=== PATIENT | female | born 1970 | race Caucasian/White ===

== ENCOUNTER → 2016-06-27 | Outpatient (CLI) | payer BC ==
[~2016-06-27] MED LIST: DESYREL 100MG100 MG PO; LEVBID0.375 MG PO; LORTAB 5/500 501 TAB PO; MULTIPLE VITAMI1 CAP PO; RYBIX ODT50 MG PO; VALTURNA 300 MG1 TAB PO; VITAMIN D1000 IU PO; ZOVIRAX800 MG PO; [UNRECOGNIZED DRUG - OTHER] PO; [UNRECOGNIZED DRUG - OTHER] PO; [UNRECOGNIZED DRUG - OTHER] PO
== END ==
LOC: MC.RAD 07:20
DX: Z12.31 Encounter for screening mammogram for malignant neoplasm of breast (principal)

== ENCOUNTER 2016-09-21 19:12 | Inpatient (IN) | payer BC ==
[~2016-09-21] VITALS: Ht 167.6 cm; Wt 96.2 kg
[~2016-09-21 19:12] MED LIST changes: -DESYREL 100MG100 MG PO; -LEVBID0.375 MG PO; -MULTIPLE VITAMI1 CAP PO; -VITAMIN D1000 IU PO; -ZOVIRAX800 MG PO; -[UNRECOGNIZED DRUG - OTHER] PO
[2016-09-21] MEDS ORDERED: VITAMIN D1000 IU PO (19:18)
[2016-09-21] MEDS ORDERED: [UNRECOGNIZED DRUG - OTHER] PO (19:19)
[2016-09-21 20:15] LABS: BASO % 0.2 % (0.0-2.0); EOS % 0.1 % (0-4.0); GRAN # 6.2 (1.4-6.5); GRAN % 67.4 % (42.2-75.2); HEMATOCRIT 41.8 % (37.0-47.0); HEMOGLOBIN 13.9 g/dl (12.5-16.0); LYMPH # 2.3 (1.2-3.4); LYMPH % 24.6 % (20.0-51.0); MEAN CELL VOLUME 91 fl (80.0-100.0); MEAN CORPUSCULAR HEMOGLOBIN 30 pg (27.0-31.0); MEAN CORPUSCULAR HGB CONC 33 g/dl (33.0-37.0); MEAN PLATELET VOLUME 11.1 fl (7.4-10.4); MONO # 0.7 (0.1-0.6); MONO % 7.4 % (1.7-9.3); PLATELET COUNT 306 K/mm3 (130-400); RED BLOOD COUNT 4.59 M/mm3 (4.10-5.30); REDCELL DISTRIBUTION WIDTH-CV 12.4 % (11.5-14.5); WHITE BLOOD COUNT 9.2 K/mm3 (4.8-10.8)
[2016-09-21 20:27] LABS: ADJUSTED CALCIUM 8.7 mg/dL (8.4-10.2); ALBUMIN 4.7 gm/dL (3.5-5.0); BILIRUBIN,TOTAL 2.1 mg/dL (0.0-1.0); CALCIUM 9.3 mg/dL (8.4-10.2); CREATININE, serum 0.87 mg/dL (0.52-1.25); POTASSIUM 3.9 mmol/L (3.4-5.0)
[2016-09-21 22:25] LABS: PH 6 (5-8); SQUAMOUS EPITHELIAL None Seen /hpf; URINE APPEARANCE Clear; URINE BACTERIA None Seen /hpf; URINE BILIRUBIN Negative (NEGATIVE); URINE BLOOD 1+ (NEGATIVE); URINE COLOR Yellow; URINE GLUCOSE Negative (NEGATIVE); URINE KETONE 1+ (NEGATIVE); URINE UROBILINOGEN Negative (NEGATIVE); URINE WBC 0-2 /hpf
[2016-09-21] MEDS ORDERED: LEVBID0.375 MG PO (23:35)
[2016-09-21] MEDS ORDERED: DESYREL 100MG100 MG PO (23:36)
[2016-09-21] MEDS ORDERED: ZOVIRAX800 MG PO (23:37)
[2016-09-21] MEDS ORDERED: MULTIPLE VITAMI1 CAP PO (23:38)
[2016-09-21 23:52] VITALS: BP 119/73; PULSE 54
[2016-09-21 23:59] VITALS: BP 1256/75; PULSE 59; TEMP 98
[2016-09-22] VITALS (7 sets, daily range): BP systolic 94–132; BP diastolic 42–74; PULSE 53–63; TEMP 97.7–98.4
[2016-09-22 07:46] LABS: CALCIUM 8.7 mg/dL (8.4-10.2); CREATININE, serum 0.77 mg/dL (0.52-1.25); POTASSIUM 3.5 mmol/L (3.4-5.0)
[2016-09-22 07:47] LABS: BASO % 0.3 % (0.0-2.0); EOS % 0.4 % (0-4.0); GRAN # 3.6 (1.4-6.5); GRAN % 48.2 % (42.2-75.2); LYMPH # 3.2 (1.2-3.4); LYMPH % 42.7 % (20.0-51.0); MEAN CELL VOLUME 92 fl (80.0-100.0); MEAN CORPUSCULAR HGB CONC 33 g/dl (33.0-37.0); MONO # 0.6 (0.1-0.6); MONO % 7.9 % (1.7-9.3); PLATELET COUNT 249 K/mm3 (130-400); RED BLOOD COUNT 3.81 M/mm3 (4.10-5.30); REDCELL DISTRIBUTION WIDTH-CV 12.7 % (11.5-14.5); WHITE BLOOD COUNT 7.5 K/mm3 (4.8-10.8)
[2016-09-22 08:03] LABS: HEMATOCRIT 34.9 % (37.0-47.0); HEMOGLOBIN 11.5 g/dl (12.5-16.0); MEAN CORPUSCULAR HEMOGLOBIN 30 pg (27.0-31.0)
[2016-09-23 00:40] VITALS: BP 118/72; PULSE 57; TEMP 98
[2016-09-23 04:50] VITALS: BP 124/66; PULSE 57; TEMP 98.3
[2016-09-23 08:13] VITALS: BP 111/66; PULSE 76; TEMP 98
[2016-09-23 11:11] LABS: ADJUSTED CALCIUM 8.9 mg/dL (8.4-10.2); ALBUMIN 3.8 gm/dL (3.5-5.0); CALCIUM 8.7 mg/dL (8.4-10.2); CREATININE, serum 0.77 mg/dL (0.52-1.25); MAGNESIUM 1.8 mg/dL (1.6-2.3); POTASSIUM 3.9 mmol/L (3.4-5.0); TOTAL PROTEIN 6.6 gm/dL (6.4-8.2)
[2016-09-23 11:56] VITALS: BP 119/74; PULSE 65; TEMP 98.4
[2016-09-23 16:02] VITALS: BP 129/69; PULSE 68; TEMP 98.1
[2016-09-23 20:39] VITALS: BP 119/67; PULSE 71; TEMP 98.3
[2016-09-24 00:53] VITALS: BP 110/60; PULSE 55; TEMP 98
[2016-09-24 05:06] VITALS: BP 110/59; PULSE 63; TEMP 98.7
[2016-09-24 07:37] VITALS: BP 112/80; PULSE 63; TEMP 98.4
[2016-09-24 07:45] LABS: BASO % 0.4 % (0.0-2.0); EOS # 0.1 (0.0-0.7); EOS % 2.6 % (0-4.0); GRAN # 1.9 (1.4-6.5); GRAN % 39.6 % (42.2-75.2); LYMPH # 2.3 (1.2-3.4); LYMPH % 48.4 % (20.0-51.0); MEAN CELL VOLUME 92 fl (80.0-100.0); MEAN CORPUSCULAR HGB CONC 33 g/dl (33.0-37.0); MEAN PLATELET VOLUME 10.9 fl (7.4-10.4); MONO # 0.4 (0.1-0.6); MONO % 8.8 % (1.7-9.3); PLATELET COUNT 201 K/mm3 (130-400); RED BLOOD COUNT 3.53 M/mm3 (4.10-5.30); REDCELL DISTRIBUTION WIDTH-CV 12.5 % (11.5-14.5); WHITE BLOOD COUNT 4.7 K/mm3 (4.8-10.8)
[2016-09-24 07:50] LABS: HEMATOCRIT 32.3 % (37.0-47.0); HEMOGLOBIN 10.7 g/dl (12.5-16.0); MEAN CORPUSCULAR HEMOGLOBIN 30 pg (27.0-31.0)
[2016-09-24 08:03] LABS: ADJUSTED CALCIUM 8.9 mg/dL (8.4-10.2); ALBUMIN 3.2 gm/dL (3.5-5.0); BILIRUBIN,TOTAL 0.8 mg/dL (0.0-1.0); CALCIUM 8.3 mg/dL (8.4-10.2); CREATININE, serum 0.75 mg/dL (0.52-1.25); POTASSIUM 3.7 mmol/L (3.4-5.0); TOTAL PROTEIN 5.7 gm/dL (6.4-8.2)
[2016-09-24 09:59] LABS: PH 7 (5-8); SQUAMOUS EPITHELIAL 0-2 /hpf; URINE APPEARANCE Clear; URINE BACTERIA Rare /hpf; URINE BILIRUBIN Negative (NEGATIVE); URINE BLOOD 1+ (NEGATIVE); URINE COLOR Yellow; URINE GLUCOSE Negative (NEGATIVE); URINE KETONE Trace (NEGATIVE); URINE RBC 0-2 /hpf; URINE UROBILINOGEN Negative (NEGATIVE); URINE WBC 0-2 /hpf
[2016-09-24 11:29] VITALS: BP 103/64; PULSE 69; TEMP 97.9
== END 2016-09-24 15:15 | disposition home or self-care (01) | DRG 393 ==
LOC: COL.ER 19:12 → MEDICAL 22:43
PROVIDERS: Emergency Medicine; Internal Medicine Gastroenterology; Nurse Practitioner Family; Physician Assistant
PROC: 0FC98ZZ Extirpation of Matter from Common Bile Duct, Via Natural or Artificial Opening Endoscopic (ICD-10-PCS; principal; 2016-09-23 15:30)
DX: K91.86 Retained cholelithiasis following cholecystectomy (principal); K85.90 Acute pancreatitis without necrosis or infection, unspecified; K58.9 Irritable bowel syndrome, unspecified; R39.15 Urgency of urination; Z98.84 Bariatric surgery status
CPT/HCPCS: 99222-AI; 99232-AI; 99238; A9585; C1769; J1170; J2060; J2405; J2550; J2704; J3010; J7030; J7120; Q9967

== ENCOUNTER → 2017-06-29 | Outpatient (CLI) | payer BC ==
[~2017-06-29] MED LIST changes: +DESYREL 100MG100 MG PO; +LEVBID0.375 MG PO; +MULTIPLE VITAMI1 CAP PO; +VITAMIN D1000 IU PO; +ZOVIRAX800 MG PO; +[UNRECOGNIZED DRUG - OTHER] PO
== END ==
LOC: MC.RAD 12:28
DX: Z12.31 Encounter for screening mammogram for malignant neoplasm of breast (principal)

== ENCOUNTER 2018-11-12 20:27 | Emergency (ER) | payer BC ==
[~2018-11-12] VITALS: Ht 167.6 cm; Wt 90.9 kg
[2018-11-12 20:32] VITALS: BP 115/69; PULSE 78; TEMP 97.8
[2018-11-12 21:21] LABS: COLLECTION METHOD CLEAN CATCH
[2018-11-12] MEDS ORDERED: ANTIBIOTIC (21:22)
[2018-11-12 21:38] LABS: MUCOUS Present /lpf; PH 6 (5-8); URINE APPEARANCE Cloudy; URINE BACTERIA None Seen /hpf; URINE BILIRUBIN Negative (NEGATIVE); URINE BLOOD 2+ (NEGATIVE); URINE COLOR Yellow; URINE GLUCOSE Negative (NEGATIVE); URINE KETONE Negative (NEGATIVE); URINE LEUKOCYTE ESTERASE 3+ (NEGATIVE); URINE NITRATE Positive (NEGATIVE); URINE PROTEIN(semi-quant) Negative (NEGATIVE); URINE RBC >50 /hpf; URINE UROBILINOGEN Negative (NEGATIVE)
[2018-11-12 22:16] LABS: BASO # 0.1 (0.0-0.2); BASO % 0.6 % (0.0-2.0); EOS # 0.1 (0.0-0.7); EOS % 1.8 % (0-4.0); GRAN % 38.5 % (42.2-75.2); HEMATOCRIT 43.7 % (37.0-47.0); HEMOGLOBIN 14.3 g/dl (12.5-16.0); LYMPH # 3.9 (1.2-3.4); LYMPH % 50.5 % (20.0-51.0); MEAN CELL VOLUME 90 fl (80.0-100.0); MEAN CORPUSCULAR HEMOGLOBIN 30 pg (27.0-31.0); MEAN CORPUSCULAR HGB CONC 33 g/dl (33.0-37.0); MEAN PLATELET VOLUME 9.8 fl (7.4-10.4); MONO # 0.7 (0.1-0.6); MONO % 8.5 % (1.7-9.3); PLATELET COUNT 270 K/mm3 (130-400); RED BLOOD COUNT 4.84 M/mm3 (4.10-5.30); REDCELL DISTRIBUTION WIDTH-CV 12.4 % (11.5-14.5)
[2018-11-12 22:30] LABS: ALANINE AMINOTRANSFERASE 12 U/L (9-52); ALBUMIN 4.4 gm/dL (3.5-5.0); ALKALINE PHOSPHATASE 73 U/L (50-136); ANION GAP 9 mmol/L (7-16); AST,SGOT 27 U/L (15-37); BILIRUBIN,TOTAL 0.4 mg/dL (0.0-1.0); BLOOD UREA NITROGEN 14 mg/dL (7-17); CALCIUM 9.5 mg/dL (8.4-10.2); CARBON DIOXIDE 27 mmol/L (22-30); CHLORIDE 104 mmol/L (98-107); CREATININE, serum 0.91 (0.52-1.25); GLUCOSE 91 mg/dL (74-106); POTASSIUM 4.1 mmol/L (3.4-5.0); SODIUM 140 mmol/L (137-145); TOTAL PROTEIN 7.6 gm/dL (6.4-8.2)
[2018-11-12 22:33] LABS: C-REACTIVE PROTEIN < 0.5 mg/dL (0.0-0.9)
[2018-11-12] MEDS ORDERED: OMNICEF 300MG300 MG PO (22:37)
[2018-11-12] MEDS ORDERED: ZOVIRAX 200MG200 MG PO (22:51)
== END 2018-11-12 23:00 | disposition home or self-care (01) ==
LOC: COL.ER 20:27
PROVIDERS: Emergency Medicine; Physician Assistant
DX: N39.0 Urinary tract infection, site not specified (principal); B00.9 Herpesviral infection, unspecified
CPT/HCPCS: J0696

== ENCOUNTER 2020-03-19 15:33 | Emergency (ER) | payer BC ==
[~2020-03-19] VITALS: Ht 167.6 cm; Wt 91.8 kg
[~2020-03-19 15:33] MED LIST changes: +ANTIBIOTIC; +OMNICEF 300MG300 MG PO; +ZOVIRAX 200MG200 MG PO
[2020-03-19 15:38] VITALS: TEMP 98.7
[2020-03-19 17:08] LABS: COLLECTION METHOD CLEAN CATCH
[2020-03-19 17:12] LABS: BASO % 0.5 % (0.0-2.0); EOS # 0.1 (0.0-0.7); EOS % 2.1 % (0-4.0); GRAN # 2.9 (1.4-6.5); GRAN % 46.7 % (42.2-75.2); HEMATOCRIT 39.9 % (37.0-47.0); HEMOGLOBIN 12.8 g/dl (12.5-16.0); LYMPH # 2.5 (1.2-3.4); MEAN CELL VOLUME 93 fl (80.0-100.0); MEAN CORPUSCULAR HEMOGLOBIN 30 pg (27.0-31.0); MEAN CORPUSCULAR HGB CONC 32 g/dl (33.0-37.0); MEAN PLATELET VOLUME 10.5 fl (7.4-10.4); MONO # 0.7 (0.1-0.6); MONO % 10.5 % (1.7-9.3); PLATELET COUNT 245 K/mm3 (130-400); REDCELL DISTRIBUTION WIDTH-CV 12.9 % (11.5-14.5)
[2020-03-19 17:17] LABS: PH 5 (5-8); SQUAMOUS EPITHELIAL 0-2 /hpf; URINE APPEARANCE Clear; URINE BACTERIA Rare /hpf; URINE BILIRUBIN Negative (NEGATIVE); URINE BLOOD 2+ (NEGATIVE); URINE COLOR Straw; URINE GLUCOSE Negative (NEGATIVE); URINE KETONE Negative (NEGATIVE); URINE LEUKOCYTE ESTERASE Negative (NEGATIVE); URINE NITRATE Negative (NEGATIVE); URINE PROTEIN(semi-quant) Negative (NEGATIVE); URINE UROBILINOGEN Negative (NEGATIVE)
[2020-03-19 17:24] LABS: ALANINE AMINOTRANSFERASE 17 U/L (4-34); ALBUMIN 3.9 gm/dL (3.5-5.0); ALKALINE PHOSPHATASE 52 U/L (50-136); ANION GAP 6 mmol/L (7-16); AST,SGOT 19 U/L (15-37); BILIRUBIN,TOTAL 0.3 mg/dL (0.0-1.0); BLOOD UREA NITROGEN 13 mg/dL (7-17); CALCIUM 8.6 mg/dL (8.4-10.2); CARBON DIOXIDE 29 mmol/L (22-30); CHLORIDE 102 mmol/L (98-107); CREATININE, serum 0.79 (0.52-1.25); GLUCOSE 88 mg/dL (74-106); POTASSIUM 4.1 mmol/L (3.4-5.0); SODIUM 137 mmol/L (137-145); TOTAL PROTEIN 6.6 gm/dL (6.4-8.2)
[2020-03-19 17:27] LABS: C-REACTIVE PROTEIN < 0.5 mg/dL (0.0-0.9)
[2020-03-19] MEDS ORDERED: AMOXICILLIN 8751 TAB PO (18:12)
[2020-03-19] MEDS ORDERED: NORCO 325 MG-51 TAB PO (18:13)
[2020-03-19 20:34] VITALS: BP 111/60; PULSE 62
== END 2020-03-19 20:33 | disposition home or self-care (01) ==
LOC: COL.ER 15:33
PROVIDERS: Physician Assistant
DX: R10.9 Unspecified abdominal pain (principal); J01.90 Acute sinusitis, unspecified; Z20.828 Contact with and (suspected) exposure to other viral communicable diseases; Z90.49 Acquired absence of other specified parts of digestive tract; Z98.84 Bariatric surgery status; Z88.8 Allergy status to other drugs, medicaments and biological substances; Z88.1 Allergy status to other antibiotic agents
CPT/HCPCS: J1885; Q9967